=== PATIENT | male | born 1970 | race Caucasian/White ===

== ENCOUNTER 2019-11-05 18:04 | Inpatient (IN) | payer BC ==
[2019-11-05] MEDS ORDERED: NA CHLORIDE 0.9% 2,000 ML ONE (18:43)
[2019-11-05] MEDS ORDERED: FAMOTIDINE 20 MG/2 ML VIAL IV ONE (18:43)
[2019-11-05] MEDS ORDERED: HYDROMORPHONE HCL 1 MG/ML INJ ONE ×2 (18:43→23:33)
[2019-11-05] MEDS ORDERED: ONDANSETRON 4 MG/2 ML VIAL ONE (18:43)
[2019-11-05 19:03] LABS: Absolute Lymphocytes (CBC) 2.4 K/uL (0.7-4.9); Basophils % 0.7 % (0-1.3); Hematocrit 39.9 % (39.6-49.0); Lymphocytes % 22.2 % (15.3-44.8); MPV 8.5 fL (7.6-11.3); RBC Red Blood Cell Count 4.34 M/uL (4.33-5.43)
[2019-11-05 19:04] LABS: Protime INR 0.93
[2019-11-05 19:35] LABS: ALT/SGPT 45 U/L (12-78); AST/SGOT 35 U/L (15-37); Albumin 3.6 g/dL (3.4-5.0); Alkaline Phosphatase 81 U/L (45-117); BUN Blood Urea Nitrogen 15 mg/dL (7-18); Bicarbonate 35 mmol/L (21-32); Bilirubin Direct < 0.1 mg/dL (0-0.2); Bilirubin Total 0.2 mg/dL (0.2-1.0); Glucose Level 111 mg/dL (74-106); Lipase 2106 U/L (73-393); Magnesium 2.9 mg/dL (1.8-2.4); NT PRO-BNP 70 pg/mL (<125); Potassium 3.3 mmol/L (3.5-5.1); Protein, Total 7.1 g/dL (6.4-8.2); Sodium Level 140 mmol/L (136-145); Troponin (Emerg Dept Use Only) < 0.02 ng/mL (0.0-0.045)
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
[2019-11-05] MEDS ORDERED: NS KCL 20MEQ 1,000 ML IV ONE (20:03)
[2019-11-05] MEDS ORDERED: NA CHLORIDE 0.9% 1,000 ML ONE (20:03)
--- NOTE | 2019-11-05 20:38 | RAD REPORT ---
EXAM DESCRIPTION: CT - Abdomen Pelvis W Contrast - 11/05/2019 8:22 pm CLINICAL HISTORY: Abdominal pain. COMPARISON: None. TECHNIQUE: Computed axial tomography of the abdomen and pelvis was obtained. 100 cc Isovue-300 is ad ministered intravenously. Oral contrast was given. All CT scans are performed using dose optimization technique as appropriate and may include automated exposure control or mA/KV adjustment according to patient size. FINDINGS: Fatty liver. Splenic granulomata The adrenals and kidneys unremarkable The pancreas is inhomogeneous. Moderate to marked stranding within the peripancreatic fat with small amount of ill-defined fluid in the left anterior pararenal space. No pseudocyst. There is no evidence of diverticulitis Small ventral hernia IMPRESSION: Moderate to marked pancreatitis
--- NOTE | 2019-11-05 20:39 | RAD REPORT ---
EXAM DESCRIPTION: US - Abdomen Exam Limited - 11/05/2019 8:13 pm CLINICAL HISTORY: Abdominal pain. COMPARISON: None. FINDINGS: The gallbladder wall is not thickened. A gallstone is not seen. The biliary tree is normal caliber. IMPRESSION: Unremarkable gallbladder ultrasound.
--- NOTE | 2019-11-05 20:39 | RAD REPORT ---
EXAM DESCRIPTION: Nikolas Single View11/05/2019 7:11 pm CLINICAL HISTORY: cough COMPARISON: none FINDINGS: The lungs appear clear of acute infiltrate. The heart is normal size IMPRESSION: No acute abnormalities displayed
[2019-11-05] MEDS ORDERED: ACETAMINOPHEN 500 MG TAB PO PRN (21:11)
[2019-11-05] MEDS ORDERED: MORPHINE 4 MG/ML SYR IV PRN (21:11)
[2019-11-05] MEDS ORDERED: ONDANSETRON 4 MG/2 ML VIAL IV PRN (21:11)
[2019-11-05] MEDS: NA CHLORIDE 0.9% 1,000 ML IV SCH (22:00)
[2019-11-05] MEDS: HYDROMORPHONE HCL 1 MG/ML INJ IV PRN (23:31)
[2019-11-06] MEDS: HYDROMORPHONE HCL 1 MG/ML INJ IV PRN ×5 (04:05→21:22)
[2019-11-06] MEDS: NA CHLORIDE 0.9% 1,000 ML IV SCH ×5 (04:07→23:45)
[2019-11-06 04:23] LABS: Absolute Lymphocytes (CBC) 1.7 K/uL (0.7-4.9); Basophils % 0.5 % (0-1.3); Hematocrit 35.9 % (39.6-49.0); Lymphocytes % 16.6 % (15.3-44.8); MPV 8.7 fL (7.6-11.3); RBC Red Blood Cell Count 3.86 M/uL (4.33-5.43)
[2019-11-06 04:34] LABS: Albumin 3.1 g/dL (3.4-5.0); Bilirubin Total 0.5 mg/dL (0.2-1.0); Potassium 4.1 mmol/L (3.5-5.1)
[2019-11-06 04:34] LABS: Barbiturates NEGATIVE (NEGATIVE); Benzodiazepines NEGATIVE (NEGATIVE); Cocaine NEGATIVE (NEGATIVE); METHAMPHETAM NEGATIVE (NEGATIVE); Methadone POSITIVE (NEGATIVE); Opiates NEGATIVE (NEGATIVE); Phencyclidine NEGATIVE (NEGATIVE); THC Cannibis POSITIVE (NEGATIVE)
[2019-11-06] MEDS ORDERED: NA CHLORIDE 0.9% 500 ML IV ONE (08:30)
[2019-11-06 08:33] VITALS: BMI 35.3
--- NOTE | 2019-11-06 08:53 | P.HP ---
Certification for Inpatient Patient admitted to: Inpatient With expected LOS: >2 Midnights Practitioner: I am a practitioner with admitting privileges, knowledge of patient current condition, hospital course, and medical plan of care. Services: Services provided to patient in accordance with Admission requirements found in Title 42 Section 412.3 of the Code of Federal Regulations Patient History Date of Service: 11/05/19 Reason for admission: Acute pancreatitis History of Present Illness: Patient is a 48-year-old gentleman who came to the hospital with abdominal pain. He had nausea at but denies any vomiting. The symptoms have gotten progressively worse over the last 48 hr. He states he was drinking quite a bit on Tuesday and Tuesday. He started having some symptoms on Tuesday eat which got worse on Tuesday. He came into the ER for further evaluation. He has a history of an appendectomy any have some complications after the surgery. This was done many years ago. He did develop pancreatitis a few years ago. He was unsure exactly what caused it. He has drank alcohol on and off for most of his adult life. He has had 1 prior episode of pancreatitis. This episode also seems like it was caused by alcohol use. He was advised to refrain from alcohol use in the future. Will check a lipid profile in the morning as well. Repeat lipase level. CT scan pending. Allergies No Known Allergies Allergy (Verified 11/11/12 10:09) - Past Medical/Surgical History Has patient received pneumonia vaccine in the past: No Diabetic: No -: COPD -: Asthma -: Drug abuse -: ETOH abuse -: Tobacco use (1/2 ppd) -: Appendectomy - Family History Father Family History: Reviewed- Non-Contributory - Social History Smoking Status: Current every day smoker Alcohol use: Yes CD- Drugs: No Caffeine use: Yes Place of Residence: Home Review of Systems 10-point ROS is otherwise unremarkable Physical Examination - Vital Signs Temperature: 97.6 F Blood Pressure: 125/81 Pulse: 49 Respirations: 16 Pulse Ox (%): 95 - Physical Exam General: Alert, In no apparent distress, Oriented x3 HEENT: Atraumatic, PERRLA, Mucous membr. moist/pink, EOMI, Sclerae nonicteric Neck: Supple, 2+ carotid pulse no bruit, No LAD, Without JVD or thyroid abnormality Respiratory: Clear to auscultation bilaterally, Normal air movement Cardiovascular: Regular rate/rhythm, Normal S1 S2, No murmurs Gastrointestinal: Normal bowel sounds, Soft and benign, Non-distended, No rebound, No guarding, Tenderness Musculoskeletal: No clubbing, No swelling, No tenderness Integumentary: No rashes Neurological: Normal gait, Normal speech, Normal strength at 5/5 x4 extr, Normal tone, Sensation intact, Cranial nerves 3-12 intact, Normal affect Lymphatics: No axilla or inguinal lymphadenopathy - Studies Laboratory Data (last 24 hrs) 11/05/19 18:45: PT 11.0, INR 0.93 11/05/19 18:45: WBC 10.8, Hgb 13.5 L, Hct 39.9, Plt Count 298 11/05/19 18:45: Sodium 140, Potassium 3.3 L, BUN 15, Creatinine 1.23, Glucose 111 H, Magnesium 2.9 H, Total Bilirubin 0.2, AST 35, ALT 45, Alkaline Phosphatase 81, Lipase 2106 H Assessment & Plan - Problems (Diagnosis) (1) Acute pancreatitis Current Visit: Yes Status: Acute Qualifiers: Pancreatitis type: alcohol induced (2) Alcohol use Current Visit: Yes Status: Acute - Plan Plan: 1. IV hydration 2. Pain control 3. Monitor lipase levels 4. If symptoms worsen may get CT scan 5. Patient will need GI follow-up in the future 6. GI and DVT prophylaxis Discharge Plan: Home Plan to discharge in: Greater than 2 days - Advance Directives Does patient have a Living Will: No Does patient have a Durable POA for Healthcare: No - Code Status/Comfort Care Code Status Assessed: Yes Code Status: Full Code Critical Care: No Time Spent Managing PTS Care (In Minutes): 45
[2019-11-06] MEDS ORDERED: INFLUENZA VACCINE (for 3y+) 0.5 ML DOSE IMVAC ONE (10:00)
[2019-11-06 12:25] VITALS: O2SAT 95
--- NOTE | 2019-11-06 14:07 | EKG ---
Test Date: 2019-11-05 Test Time: 18:43:56 Electric System Operator: ENRRIQUE MEASUREMENT RESULTS: Intervals: Rate: 56 [place]: 154 QRSD: 108 QT: 476 QTc: 459 Geronimo: P: 58 [place]: 154 QRS: 55 T: 50 INTERPRETIVE STATEMENTS: Sinus bradycardia with sinus arrhythmia Otherwise normal ECG No previous ECG available for comparison Electronically Signed On 11-06-19 14:06:10 FIRE PREVENTION CHIEF by Skinny Mai
[2019-11-06 14:21] LABS: Urine Appearance CLEAR; Urine Bilirubin NEGATIVE (NEG); Urine Blood NEGATIVE (NEG); Urine Color YELLOW; Urine Glucose NEGATIVE (NEG); Urine Protein NEGATIVE (NEG); Urine Urobilinogen 0.2 mg/dL (0.2-1.0)
[2019-11-06 14:24] LABS: Urine Microscopic Reflex NO UMIC
[2019-11-07] MEDS: HYDROMORPHONE HCL 1 MG/ML INJ IV PRN ×5 (03:02→20:43)
[2019-11-07] MEDS: NA CHLORIDE 0.9% 1,000 ML IV SCH ×3 (06:05→20:40)
[2019-11-07] MEDS ORDERED: NA CHLORIDE 0.9% 500 ML IV ONE ×2 (08:18→20:00)
[2019-11-07 11:31] LABS: Absolute Lymphocytes (CBC) 1.1 K/uL (0.7-4.9); Basophils % 0.3 % (0-1.3); Hematocrit 33.7 % (39.6-49.0); Lymphocytes % 13.2 % (15.3-44.8); MPV 8.7 fL (7.6-11.3); RBC Red Blood Cell Count 3.62 M/uL (4.33-5.43)
[2019-11-07 11:47] LABS: ALT/SGPT 32 U/L (12-78); AST/SGOT 31 U/L (15-37); Albumin 2.9 g/dL (3.4-5.0); Alkaline Phosphatase 77 U/L (45-117); BUN Blood Urea Nitrogen 8 mg/dL (7-18); Bicarbonate 24 mmol/L (21-32); Bilirubin Total 0.5 mg/dL (0.2-1.0); Glucose Level 127 mg/dL (74-106); Lipase 1022 U/L (73-393); Potassium 3.3 mmol/L (3.5-5.1); Protein, Total 6.2 g/dL (6.4-8.2); Sodium Level 140 mmol/L (136-145)
[2019-11-08] MEDS: HYDROMORPHONE HCL 1 MG/ML INJ IV PRN ×3 (00:26→08:42)
[2019-11-08] MEDS: NA CHLORIDE 0.9% 1,000 ML IV SCH ×2 (00:26→06:53)
[2019-11-08] MEDS ORDERED: KCL 20 MEQ/100 mL IVPB 20 MEQ/100 ML BAG IV SCH (07:00)
[2019-11-08] MEDS ORDERED: POTASSIUM 25 MEQ EFFERV TAB PO ONE (07:37)
--- NOTE | 2019-11-08 09:03 | P.PN ---
Subjective Date of Service: 11/06/19 Patient still with severe pain. Requesting increased pain medication. Will go ahead increases pain medication at this time. Start clear liquid diet in the morning if labs are improved. Review of Systems 10-point ROS is otherwise unremarkable Physical Examination - Vital Signs Temperature: 97.0 F Blood Pressure: 141/87 Pulse: 51 Respirations: 16 Pulse Ox (%): 95 - Physical Exam General: Alert, In no apparent distress, Oriented x3 Respiratory: Clear to auscultation bilaterally, Normal air movement Cardiovascular: Regular rate/rhythm, Normal S1 S2 Gastrointestinal: Normal bowel sounds, Hypoactive, Soft and benign, Distended, Tenderness (Epigastric area) Musculoskeletal: No clubbing, No swelling, No contractures Neurological: Normal gait, Normal speech, Normal strength at 5/5 x4 extr, Normal tone, Sensation intact, Cranial nerves 3-12 intact Assessment & Plan - Problems (Diagnosis) (1) Acute pancreatitis Current Visit: No Status: Acute Qualifiers: Pancreatitis type: alcohol induced (2) Alcohol use Current Visit: No Status: Acute - Plan Plan: Continue with current plan of care at this time 1. IV hydration 2. Pain control 3. Monitor lipase levels 4. If symptoms worsen may get CT scan 5. Patient will need GI follow-up in the future 6. GI and DVT prophylaxis Discharge Plan: Home Plan to discharge in: Greater than 2 days - Advance Directives Does patient have a Living Will: No Does patient have a Durable POA for Healthcare: No - Code Status/Comfort Care Code Status: Full Code Critical Care: No Time Spent Managing PTS Care (In Minutes): 35
--- NOTE | 2019-11-08 09:06 | P.PN ---
Date of Service: 11/07/19 Subjective Patient still with severe pain. Requesting increased pain medication. Will go ahead increases pain medication at this time. Start clear liquid diet in the morning if labs are improved. Review of Systems 10-point ROS is otherwise unremarkable Physical Examination - Vital Signs Reviewed - Physical Exam General: Alert, In no apparent distress, Oriented x3 Respiratory: Clear to auscultation bilaterally, Normal air movement Cardiovascular: Regular rate/rhythm, Normal S1 S2 Gastrointestinal: Normal bowel sounds, Hypoactive, Soft and benign, Distended, Tenderness (Epigastric area) Musculoskeletal: No clubbing, No swelling, No contractures Neurological: Reviewed Assessment & Plan - Problems (Diagnosis) (1) Acute pancreatitis Current Visit: No Status: Acute Qualifiers: Pancreatitis type: alcohol induced (2) Alcohol use Current Visit: No Status: Acute - Plan Plan: Continue with current plan of care at this time 1. IV hydration 2. Pain control 3. Monitor lipase levels 4. Advanced diet to clear liquid 5. Patient will need GI follow-up in the future 6. GI and DVT prophylaxis Discharge Plan: Home Plan to discharge in: Greater than 2 days
--- NOTE | 2019-11-08 09:08 | P.DS ---
Discharge Date: 11/08/19 Disposition: ROUTINE DISCHARGE Discharge Condition: GOOD Reason for Admission: Acute pancreatitis - Problems (1) Acute pancreatitis Current Visit: No Status: Acute Qualifiers: Pancreatitis type: alcohol induced (2) Alcohol use Current Visit: No Status: Acute Brief History of Present Illness: Patient is a 48-year-old gentleman who came to the hospital with abdominal pain. He had nausea at but denies any vomiting. The symptoms have gotten progressively worse over the last 48 hr. He states he was drinking quite a bit on Tuesday and Tuesday. He started having some symptoms on Tuesday eat which got worse on Tuesday. He came into the ER for further evaluation. He has a history of an appendectomy any have some complications after the surgery. This was done many years ago. He did develop pancreatitis a few years ago. He was unsure exactly what caused it. He has drank alcohol on and off for most of his adult life. He has had 1 prior episode of pancreatitis. This episode also seems like it was caused by alcohol use. He was advised to refrain from alcohol use in the future. Will check a lipid profile in the morning as well. Repeat lipase level. CT scan pending. Hospital Course: Diet was advanced. Patient tolerated it. Clinically patient continues to improve. At this time patient is stable for discharge with outpatient follow- up. Patient was advised to refrain from alcohol use going forward. Vital Signs/Physical Exam: Temp Pulse Resp BP Pulse Ox 97.0 F 51 16 141/87 H 95 11/08/19 09:02 11/08/19 09:02 11/08/19 09:02 11/08/19 09:02 11/08/19 09:02 General: Alert, In no apparent distress, Oriented x3 Laboratory Data at Discharge: WBC 8.3 K/uL (4.3-10.9) D 11/07/19 11:06 Hgb 11.3 g/dL (13.6-17.9) L 11/07/19 11:06 Hct 33.7 % (39.6-49.0) L 11/07/19 11:06 Plt Count 214 K/uL (152-406) 11/07/19 11:06 PT 11.0 SECONDS (9.5-12.5) 11/05/19 18:45 INR 0.93 11/05/19 18:45 Sodium 140 mmol/L (136-145) 11/07/19 11:06 Potassium 3.3 mmol/L (3.5-5.1) L 11/07/19 11:06 BUN 8 mg/dL (7-18) 11/07/19 11:06 Creatinine 0.76 mg/dL (0.55-1.3) 11/07/19 11:06 Glucose 127 mg/dL (74-106) H 11/07/19 11:06 Magnesium 2.9 mg/dL (1.8-2.4) H 11/05/19 18:45 Total Bilirubin 0.5 mg/dL (0.2-1.0) 11/07/19 11:06 AST 31 U/L (15-37) 11/07/19 11:06 ALT 32 U/L (12-78) 11/07/19 11:06 Alkaline Phosphatase 77 U/L (45-117) 11/07/19 11:06 Triglycerides 380 mg/dL (<150) H 11/06/19 03:40 Cholesterol 145 mg/dL (<200) 11/06/19 03:40 HDL Cholesterol 25 mg/dL (40-60) L 11/06/19 03:40 Cholesterol/HDL Ratio 5.80 11/06/19 03:40 Lipase 1022 U/L (73-393) H 11/07/19 11:06 Home Medications: Methadone HCl [Methadose] 2.5 tab PO DAILY 11/06/19 Patient Discharge Instructions: OK TO DC IV AND DC HOME. FOLLOW-UP WITH PRIMARY CARE PROVIDER IN 1-2 WEEKS. FOLLOW-UP WITH GI IN 1-2 WEEKS. RETURN TO THE ER IF symptoms worsen. CALL or TEXT DR. NI AT [phone] IF ANY QUESTIONS REGARDING HOSPITAL STAY. PLEASE CALL THE FLOOR AT [phone] IF ANY MEDICATION OR NURSING QUESTIONS. Diet: Low-fat Activity: Fall precautions Time spent managing pt's care (in minutes): 30
[2019-11-08 11:24] LABS: Absolute Lymphocytes (CBC) 2.3 K/uL (0.7-4.9); Basophils % 1.1 % (0-1.3); Hematocrit 38.6 % (39.6-49.0); Lymphocytes % 28.9 % (15.3-44.8); MPV 8.9 fL (7.6-11.3); RBC Red Blood Cell Count 4.19 M/uL (4.33-5.43)
[2019-11-08 11:40] LABS: ALT/SGPT 38 U/L (12-78); AST/SGOT 34 U/L (15-37); Albumin 3.3 g/dL (3.4-5.0); Alkaline Phosphatase 83 U/L (45-117); BUN Blood Urea Nitrogen 8 mg/dL (7-18); Bicarbonate 27 mmol/L (21-32); Bilirubin Total 0.5 mg/dL (0.2-1.0); Glucose Level 75 mg/dL (74-106); Lipase 622 U/L (73-393); Magnesium 1.8 mg/dL (1.8-2.4); Sodium Level 140 mmol/L (136-145)
[2019-11-08 12:09] VITALS: BP 136/83; TEMP 97.1
[2019-11-08] MEDS ORDERED: HYDROCODONE/APAP 10/325 TAB PO ONE (12:57)
== END 2019-11-08 13:36 | disposition home or self-care (01) | DRG 440 ==
LOC: ER 18:04 → OBSVTOIN 21:26 → ERHOLD 21:26 → 4TH 11-06 00:19
PROVIDERS: ADMIT Hospitalist; ATTEND Hospitalist
DX: K85.90 Acute pancreatitis without necrosis or infection, unspecified (principal); J44.9 Chronic obstructive pulmonary disease, unspecified; F17.210 Nicotine dependence, cigarettes, uncomplicated; Z72.89 Other problems related to lifestyle; Z23 Encounter for immunization
CPT/HCPCS: 36415; 71045; 74177; 76705; 80048; 80053; 80061; 80076; 80307; 80320; 81003; 83690; 83735; 83880; 84484; 85025; 85610; 90471; 93005; 96361; 96374; 96375; 99285; J1170; J2405; J7030; J7040; Q2035; Q9967